=== PATIENT | female | born 1970 | race Caucasian/White ===

== ENCOUNTER → 2017-05-20 | Outpatient (CLI) | payer OTHER ==
[~2017-05-20] MED LIST: CLON1TAB PO; METO25TA35 PO; NORE5TAB PO; ZOLP10TA5 PO
== END | disposition home or self-care (01) ==
LOC: CVU 11:43
PROVIDERS: ATTEND Internal Medicine Cardiovascular Disease
DX: R07.9 Chest pain, unspecified (principal)
CPT/HCPCS: 93306

== ENCOUNTER → 2020-11-28 | Outpatient (CLI) | payer MEDICARE ==
[~2020-11-28] MED LIST changes: +ASCO1TAB17 PO; +ASCO500T8 PO; +BIOTIN PO; +CALC-534 PO; +CHOL10003 PO; +CITA20TA6 PO; +HAIR PO; +LEVO75TA5 PO; +LOSA100T14 PO; +MAGN400T36 PO; +METO-93 PO; +TURM500C4 PO; +[UNRECOGNIZED DRUG - OTHER] PO; +[UNRECOGNIZED DRUG - OTHER] PO
[2020-11-28 08:59] LABS: ALANINE AMINOTRANSFERASE 19 U/L (12-78); ANION GAP 7 mmol/L (5-15); CALCIUM 9.2 mg/dL (8.5-10.1); CHLORIDE 110 mmol/L (98-107); CREATININE 0.68 mg/dL (0.55-1.02)
[2020-11-28 09:01] LABS: ALKALINE PHOSPHATASE 65 U/L (45-117); BILIRUBIN,TOTAL 0.3 mg/dL (0.2-1.0); TOTAL PROTEIN 7.4 g/dL (6.4-8.2)
== END | disposition home or self-care (01) ==
LOC: STAR 07:20
PROVIDERS: ATTEND Orthopaedic Surgery
DX: Z01.812 Encounter for preprocedural laboratory examination (principal); Z20.822 Contact with and (suspected) exposure to COVID-19
CPT/HCPCS: 36415; 80053; U0003; U0005

== ENCOUNTER 2020-12-05 11:08 | Day surgery (SDC) | payer MEDICARE ==
[~2020-12-05] VITALS: Ht 172.7 cm; Wt 82.9 kg
[2020-12-05] MEDS ORDERED: LIDOCAINE/PF 1%, 30ML ONE (11:13)
[2020-12-05] MEDS ORDERED: BUPIVACAINE/PF 0.5% ONE (11:13)
[2020-12-05] MEDS ORDERED: CHLORHEXIDINE 15 ML UDC ONE (11:26)
[2020-12-05] MEDS ORDERED: LACTATED RINGERS 1,000 ML IV SCH (12:00)
[2020-12-05] MEDS ORDERED: CHLORHEXIDINE 15 ML UDC PO ONE (12:00)
[2020-12-05] MEDS ORDERED: MIDAZOLAM 1 MG/ML, 2ML ONE (13:12)
[2020-12-05] MEDS ORDERED: FENTANYL PF 250 MCG/5ML ONE (13:12)
[2020-12-05] MEDS ORDERED: PROPOFOL 10 MG/ML, 20ML ONE (13:16)
[2020-12-05] MEDS ORDERED: DEXAMETHASONE 4 MG/ML, 1ML ONE ×2 (13:16)
[2020-12-05] MEDS ORDERED: ONDANSETRON 2MG/ML, 2ML ONE (13:16)
[2020-12-05] MEDS ORDERED: CEFAZOLIN 1,000 MG ONE ×2 (13:16)
[2020-12-05] MEDS ORDERED: ALBUTEROL SULFATE 2.5 MG/3 ML NPPB PRN (14:30)
[2020-12-05] MEDS ORDERED: MIDAZOLAM 1 MG/ML, 2ML IV PRN (14:30)
[2020-12-05] MEDS ORDERED: ACETAMINOPHEN 325 MG TABLET PO PRN (14:30)
[2020-12-05] MEDS ORDERED: DIPHENHYDRAMINE 50 MG/ML, 1ML IVPush PRN ×2 (14:30)
[2020-12-05] MEDS ORDERED: PROMETHAZINE 12.5 MG SUPP PR PRN (14:30)
[2020-12-05] MEDS ORDERED: MEPERIDINE/PF 25MG/0.5ML IVPush PRN (14:30)
[2020-12-05] MEDS ORDERED: ONDANSETRON 2MG/ML, 2ML IVPush PRN (14:30)
[2020-12-05] MEDS ORDERED: PROMETHAZINE 25 MG/ML, 1ML IVPush PRN (14:30)
[2020-12-05] MEDS ORDERED: HYDROmorphone 1 MG/ML, 1ML INJ IVPush PRN (14:30)
[2020-12-05] MEDS ORDERED: FENTANYL PF 100 MCG/2ML IV PRN (14:30)
[2020-12-05] MEDS ORDERED: OXYcodone 5 MG/5 ML ORAL.SOL UDC PO PRN (14:30)
[2020-12-05] MEDS ORDERED: hydrALAzine 20 MG/ML, 1ML IV PRN (14:30)
[2020-12-05] MEDS ORDERED: EPHEDRINE 50 MG/ML, 1ML IVPush PRN (14:30)
[2020-12-05] MEDS ORDERED: LABETALOL 5MG/ML, 20ML IV PRN (14:30)
[2020-12-05] MEDS ORDERED: DIAZEPAM 5 MG/ML, 2ML IVPush PRN (14:30)
== END 2020-12-05 16:20 | disposition home or self-care (01) ==
LOC: OUT 11:08
PROVIDERS: ATTEND Orthopaedic Surgery
DX: M21.371 Foot drop, right foot (principal); G56.03 Carpal tunnel syndrome, bilateral upper limbs; M16.11 Unilateral primary osteoarthritis, right hip; M79.671 Pain in right foot; E03.9 Hypothyroidism, unspecified; I10 Essential (primary) hypertension; Z79.899 Other long term (current) drug therapy; Z72.89 Other problems related to lifestyle; Z87.891 Personal history of nicotine dependence; Z98.890 Other specified postprocedural states
CPT/HCPCS: 27687; 27691; 64445; 64447; 73620; C1713; J0690; J1100; J2250; J2405; J2704; J3010; J7120; 76000